=== PATIENT | male | born 1990 ===

== ENCOUNTER 2017-01-23 10:08 | Emergency (ER) | payer MEDICAID, OTHER ==
[2017-01-23 10:09] VITALS: BMI 25.7
[2017-01-23 10:13] VITALS: TEMP 98.9; O2SAT 97
[2017-01-23 11:11] LABS: BASO # 0.1 K/uL (0.0-0.2); BASO % 0.8 % (0.0-2.0); EOS % 0.3 % (0.0-4.0); HEMATOCRIT 45.2 % (35.0-51.0); LYMPH % 19.7 % (20.0-40.0); MEAN CELL VOLUME 79.8 fL (80.0-94.0); MEAN CORPUSCULAR HEMOGLOBIN 26.5 pg (27.0-31.0); MEAN CORPUSCULAR HGB CONC 33.2 g/dL (33.0-37.0); MEAN PLATELET VOLUME 8.6 fL (7.2-11.7); MONO # 0.8 K/uL (0.0-0.8); MONO % 7.5 % (0.0-10.0); RED CELL DISTRIBUTION WIDTH 14.4 % (11.5-14.5)
[2017-01-23 11:18] LABS: RBC URINE 4 /hpf (0-3); URINE BILIRUBIN NEGATIVE (NEGATIVE); URINE BLOOD NEGATIVE (NEGATIVE); URINE COLOR Yellow (YELLOW); URINE GLUCOSE (UA) NORMAL (Normal); URINE KETONE 1+ mg/dL (NEGATIVE); URINE LEUKOCYTE ESTERASE NEG Leu/uL (Negative); URINE PROTEIN 1+ mg/dL (NEGATIVE); URINE UROBILINOGEN NORMAL mg/dL (0.2-1.0); WBC URINE 2 /hpf (0-5)
[2017-01-23 11:20] LABS: CHLORIDE 99 mmol/L (98-107)
[2017-01-23 11:21] LABS: POTASSIUM 3.8 mmol/L (3.6-5.2); SODIUM 138 mmol/L (132-148)
[2017-01-23 11:23] LABS: ALB/GLOB RATIO 2.1 (1.0-2.1); ALKALINE PHOSPHATASE 82 U/L (38-126); ALT/SGPT 33 U/L (21-72); AST/SGOT 47 U/L (17-59); BILIRUBIN,TOTAL 0.8 mg/dL (0.2-1.3); BLOOD UREA NITROGEN 15 mg/dL (9-20); CALCIUM 9.4 mg/dl (8.6-10.4); CARBON DIOXIDE 27 mmol/L (22-30); GFR AFRICAN-AMERICAN > 60; GLUCOSE,RANDOM 98 mg/dL (75-110); TOTAL PROTEIN 7.8 g/dL (6.3-8.3)
[2017-01-23 11:24] LABS: ALCOHOL SERUM < 10 mg/dl (0-10)
--- NOTE | 2017-01-23 12:27 | C.PDOC ---
Time Seen by Provider: 01/23/17 10:30 Chief Complaint (Nursing): Psychiatric Evaluation Past Medical History Vital Signs: Last Vital Signs Temp 98.9 F 01/23/17 10:12 Pulse 75 01/23/17 10:12 Resp 20 01/23/17 10:12 BP 169/90 H 01/23/17 10:12 Pulse Ox 97 01/23/17 10:12 - Medical History PMH: Seizures (COLLEGE YEARS) Denies: Chronic Kidney Disease - [facility] Procedures INSPECTION OF UPPER INTESTINAL TRACT, ENDO (05/30/16) Family History: States: Unknown Family Hx - Social History Hx Tobacco Use: No Hx Alcohol Use: Yes (social) Hx Substance Use: Yes - Immunization History Hx Tetanus Toxoid Vaccination: Yes (2011) Hx Influenza Vaccination: No Hx Pneumococcal Vaccination: No ED Course And Treatment - Laboratory Results Result Diagrams: 01/23/17 11:03 01/23/17 11:03 O2 Sat by Pulse Oximetry: 97 Disposition Counseled Patient/Family Regarding: Studies Performed, Diagnosis, Need For Followup, Rx Given - Disposition Referrals: Ej Dove MD [Staff Provider] - Disposition: HOME/ ROUTINE Disposition Time: 12:24 Condition: GUARDED Additional Instructions: Avoid alcohol and elicit drugs. Follow up with Dr. Dove tomorrow. Return to the Emergency Department with any further concerns. Prescriptions: Lorazepam [Ativan] 1 tab PO TID #4 tab - POA Present On Arrival: None - Clinical Impression Clinical Impression: Paranoid behavior
[2017-01-23 12:30] VITALS: BP 135/88; PULSE 71; RESP 18
== END 2017-01-23 12:30 | disposition home or self-care (01) ==
LOC: C.ER 10:08
DX: F22 Delusional disorders (principal)

== ENCOUNTER 2017-02-09 03:17 | Inpatient (IN) | payer MEDICAID, OTHER ==
[2017-02-09 03:17] VITALS: BMI 25.7
--- NOTE | 2017-02-09 04:06 | C.PDOC ---
History Of Present Illness 26 year old male who presents to the ER accompanied by mother for visual and auditory hallucinations. Mother states patient was seeing people with guns in the house and was using knives to fight them off. Patient missed his psychiatric appointment and has not been taking his medication. Denies SI or HI. Time Seen by Provider: 02/09/17 03:47 Chief Complaint (Nursing): Psychiatric Evaluation History Per: Patient, Family History/Exam Limitations: no limitations Onset/Duration Of Symptoms: Hrs Current Symptoms Are (Timing): Still Present Suicide/Self Injury Attempted (Context): None Modifying Factor(s): None Associated Symptoms: denies: Depression, Suicidal Thoughts, Suicidal Plan Involuntary Hold By: None Recent travel outside of the [place]: No Past Medical History Reviewed: Historical Data, Nursing Documentation, Vital Signs Vital Signs: Last Vital Signs Temp 98.3 F 02/09/17 03:36 Pulse 78 02/09/17 03:36 Resp 16 02/09/17 03:36 BP 151/60 H 02/09/17 03:36 Pulse Ox 98 02/09/17 04:10 - Medical History PMH: Seizures (COLLEGE YEARS) - [facility] Procedures INSPECTION OF UPPER INTESTINAL TRACT, ENDO (05/30/16) Family History: States: Unknown Family Hx - Social History Hx Tobacco Use: No Hx Alcohol Use: Yes (social) Hx Substance Use: Yes - Immunization History Hx Tetanus Toxoid Vaccination: Yes (2011) Hx Influenza Vaccination: No Hx Pneumococcal Vaccination: No Review Of Systems Psych: Positive for: Other (Hallucinations). Negative for: Suicidal ideation Physical Exam - Physical Exam Appears: Non-toxic, No Acute Distress, Other (Disheveled, poor hygiene) Skin: Normal Color, Warm, Dry Head: Atraumatic, Normacephalic Oral Mucosa: Moist Chest: Symmetrical, No Tenderness Cardiovascular: Rhythm Regular, No Murmur Respiratory: Normal Breath Sounds, No Rales, No Rhonchi, No Wheezing Neurological/Psych: Oriented x3, Normal Speech, Normal Cognition ED Course And Treatment - Laboratory Results Result Diagrams: 02/09/17 04:28 02/09/17 04:28 O2 Sat by Pulse Oximetry: 98 (Room air) Pulse Ox Interpretation: Normal Progress Note: Case discussed with Crisis. Pt was seen and evaluated for psych admission bycrisis worker, pending Utox screen Disposition - Disposition Disposition Time: 06:52 Condition: STABLE - Clinical Impression Clinical Impression: Hallucinations - Scribe Statement The provider has reviewed the documentation as recorded by the Scribe Jose Ramon Camejo All medical record entries made by the Scribe were at my direction and personally dictated by me. I have reviewed the chart and agree that the record accurately reflects my personal performance of the history, physical exam, medical decision making, and the department course for this patient. I have also personally directed, reviewed, and agree with the discharge instructions and disposition. Physician Patient Turnover Patient Signed Over To: Gayathri Viveros Handoff Comments: Pending urine and admission to psych
[2017-02-09 04:31] LABS: BASO # 0.1 K/uL (0.0-0.2); BASO % 0.4 % (0.0-2.0); EOS % 0.1 % (0.0-4.0); HEMOGLOBIN 15.1 g/dL (12.0-18.0); LYMPH % 15.2 % (20.0-40.0); MEAN CELL VOLUME 79.2 fL (80.0-94.0); MEAN CORPUSCULAR HEMOGLOBIN 26.4 pg (27.0-31.0); MEAN CORPUSCULAR HGB CONC 33.4 g/dL (33.0-37.0); MEAN PLATELET VOLUME 8.7 fL (7.2-11.7); MONO # 1.1 K/uL (0.0-0.8); MONO % 8.5 % (0.0-10.0); NEUT # 10.1 K/uL (1.8-7.0); NEUT % 75.8 % (50.0-75.0); NRBC % 0.1 % (0.0-2.0); RBC 5.71 Mil/uL (4.40-5.90); RED CELL DISTRIBUTION WIDTH 13.6 % (11.5-14.5); WHITE BLOOD COUNT 13.3 K/uL (4.8-10.8)
[2017-02-09 04:35] LABS: ALBUMIN 4.2 g/dL (3.5-5.0)
[2017-02-09 04:38] LABS: ALB/GLOB RATIO 1.3 (1.0-2.1); AST/SGOT 42 U/L (17-59); BLOOD UREA NITROGEN 18 mg/dL (9-20); GFR AFRICAN-AMERICAN > 60; GFR NON-AFRICAN AMERICAN > 60
[2017-02-09 04:39] LABS: ALT/SGPT 25 U/L (21-72); CALCIUM 9.6 mg/dl (8.6-10.4)
[2017-02-09 07:17] LABS: SPERM URINE RARE /hpf; SQUAMOUS EPITHIAL < 1 /hpf (0-5); URINE BILIRUBIN NEGATIVE (NEGATIVE); URINE BLOOD NEGATIVE (NEGATIVE); URINE CLARITY Clear (Clear); URINE COLOR Amber (YELLOW); URINE GLUCOSE (UA) NORMAL (Normal); URINE LEUKOCYTE ESTERASE NEG Leu/uL (Negative); URINE NITRATE NEGATIVE (NEGATIVE); URINE PROTEIN 1+ mg/dL (NEGATIVE); URINE UROBILINOGEN NORMAL mg/dL (0.2-1.0)
[2017-02-09 07:22] LABS: BARBITURATES, UR NEGATIVE (NEGATIVE)
[2017-02-09 07:25] LABS: PHENCYCLIDINE, UR NEGATIVE (NEGATIVE)
[2017-02-09 07:44] LABS: BENZODIAZEPINES, UR POSITIVE (NEGATIVE)
[2017-02-09 07:46] LABS: OPIATES, UR POSITIVE (NEGATIVE)
[2017-02-09 08:14] VITALS: O2SAT 98
--- NOTE | 2017-02-09 12:07 | PCM.PSYCH ---
Initial Psychiatric Evaluation - Initial Psychiatric Evaluation Type of Admission: Voluntary Legal Status: Capacity Chief Complaint (in patient's own words): "People are coming to my house." History of Present Illness and Precipitating Events: Patient is a 26 year old single AAM brought to the ED by mother for paranoid delusions of people following him and being in his house with guns today. As per the ED notes, patient's mother reported that Patient missed his appointment with the psychiatrist and stated that the delusions have gotten worse. Patient stated that earlier 'he was seeing people' and when he tried to tell him mom she told him nobody was there. Pt remained disorganized and internally preoccupied throughout the evaluation. He was superficially cooperative but remained guarded about the details. He was talking to himself continuously and had a one sided conversation. He remained paranoid and delusional. He stated, ' people are coming to my house and they are looking for me." He reports auditory hallucinations command type, telling him to kill himself and reports seeing people that are in his house. He remained irritable and a bit agitated throughout the evaluation. Patient also stated that he's using "mollies, marijuana, oxycodine, cocaine and xanax". He remained anxious and uncomfortable. Patient appeared very anxious stated that he attempted to show his mother the people in the house but she didn't see them. However he remained guarded about suicidal ideation but denied any thoughts of harming others. PMH None reported Past Psychiatric History - Past Psychiatric History Previous Treatment History: None Pertinent Medical Hx (Current Medical&Sleep Prob, Allergies): Allergies Allergy/AdvReac Type Severity Reaction Status Date / Time No Known Allergies Allergy Verified 02/09/17 03:40 Review of Systems - Review of Systems All systems: reviewed and no additional remarkable complaints except - Psychiatric Psychiatric: Anxiety, Irritability, Paranoia Mental Status Examination - Personal Presentation Personal Presentation: Looks stated age - Affect Affect: Broad - Motor Activity Motor Activity: Psychomotor Retardation - Reliability in Providing Information Reliability in Providing Information: Poor, due to alteration in thoughts, Poor , due to altered mood - Speech Speech: Disorganized - Mood Mood: Anxious - Formal Thought Process Formal Thought Process: Hallucinations, Delusions, Paranoia, Loosening of associations, Flight of ideas - Hallucinations/Delusions Hallucinations: Visual, Auditory Delusions: Persecution - Obsessions/Compulsions Obsessions: No Compulsions: No - Cognitive Functions Orientation: Person, Place, Situation, Time Sensorium: Alert Attention/Concentration: Attentive Abstract Thinking: [place] Estimate of Intelligence: Below average Judgement: Imparied, as evidence by: Poor judgement, Imparied, as evidence by: Lack of insight into illness - Risk Risk: Diminished functioning - Strength & Assets Inventory Strength & Assets Inventory: Family support DSM 5 DX - DSM 5 DSM 5 Diagnosis: Schizophrenia paranoid type continuous Cocaine use disorder severe Cannabis use disorder severe Opiate use disorder moderate - Recommended/Plan of Treatment Treatment Recommendations and Plan of Treatment: Schizophrenia paranoid type continuous CBT Psychoeducation Supportive therapy, group therapy, individual therapy Haldol 5 mg g by mouth twice a day Neurontin 100 mg by mouth 3 times a day Klonopin 1 mg by mouth twice a day Depakote 250 mg by mouth twice a day Trazodone 50 mg by mouth daily at bedtime Cannabis use disorder severe CBT Psychoeducation Supportive therapy, individual therapy Use [place] for abstinence Opioid use disorder severe CBT Psychoeducation Supportive therapy, individual therapy Use [place] for abstinence Cocaine use disorder severe CBT Psychoeducation Supportive therapy, individual therapy Use [place] for abstinence - Smoking Cessation Smoking Cessation Initiated: No
[2017-02-09] MEDS: Divalproex 250 mg DR Tab PO SCH (17:33)
[2017-02-10] MEDS: Divalproex 250 mg DR Tab PO SCH (10:16)
--- NOTE | 2017-02-10 17:25 | PCM.PYCHPN ---
Psychiatric Progress Note - Psychiatric Progress Note Patient seen today, length of contact: 17 min Patient Chief Complaint: "I'm OK, I can go today" Problems Identified/Issues Discussed: The pt is seen, chart reviewed, case discussed with staff. Support given, NV used briefly No new symptoms reported, improving slowly and needs some more time However, he has zero insight and thinks he is "just fine" No SEs from medications, risks discussed. After care discussed - not interested. Medication Change: Yes Medical Record Reviewed: Yes Mental Status Examination - Cognitive Function Orientation: Person, Place, Situation, Time Memory: Impaired Attention: Poor Concentration: Poor Association: Loose Fund of Knowledge: Poor - Mood Mood: Anxious - Affect Affect: Constricted - Formal Thought Process Formal Thought Process: Delusions, Paranoia, Loosening of associations - Suicidal Ideation Suicidal Ideation: No - Homicidal Ideation Homicidal Ideation: No Goal/Treatment Plan - Goal/Treatment Plan Need for Continued Stay: Discharge may exacerbated symptoms, Severe functional impairment Progress Toward Problem(s) and Goals/Treatment Plan: Continue medications Support and psychoeducation daily Attend groups and activities daily After care planning by SIENA but he is at risk to sign out AMA due to low insight
[2017-02-10] MEDS: Divalproex 500 mg DR Tab PO SCH ×2 (17:40→17:42)
[2017-02-11 07:56] VITALS: RESP 18
[2017-02-11] MEDS: Divalproex 500 mg DR Tab PO SCH ×2 (10:07→17:26)
--- NOTE | 2017-02-11 16:52 | PCM.PYCHPN ---
Psychiatric Progress Note - Psychiatric Progress Note Patient seen today, length of contact: 15 minutes Patient Chief Complaint: I am okay. When can I go home. Problems Identified/Issues Discussed: Patient seen. Chart reviewed. Case discussed with the staff. Issues related to illness and treatment were discussed with the patient. Reported compliant with treatment with no adverse affects. Tolerating treatment very well. Still isolative. No withdrawal symptoms. At the time of evaluation, patient was awake alert oriented 3, had no delusions, no auditory or visual hallucinations, no suicidal ideations or homicidal ideations. Medical Problems: None reported Diagnostic Results: Reviewed DSM 5 Symptoms Update: some improvement with treatment Medication Change: No Medical Record Reviewed: Yes Mental Status Examination - Cognitive Function Orientation: Person, Place, Situation, Time Memory: Intact Attention: WNL Concentration: WNL Association: WNL Fund of Knowledge: [facility] Decription of patient's judgement and insights: Poor - Mood Mood: Neutral - Affect Affect: Constricted - Speech Speech: Appropriate - Formal Thought Process Formal Thought Process: Other - Suicidal Ideation Suicidal Ideation: No - Homicidal Ideation Homicidal Ideation: No Goal/Treatment Plan - Goal/Treatment Plan Need for Continued Stay: Remain at risks for inpatient hospitalization, Discharge may exacerbated symptoms, Severe functional impairment Progress Toward Problem(s) and Goals/Treatment Plan: Patient education Supportive therapy Continue treatment as before Estimated Date of D/C: 02/16/17 - Smoking Cessation Smoking Cessation Initiated: No
[2017-02-12] MEDS: Divalproex 500 mg DR Tab PO SCH ×2 (10:30→18:13)
--- NOTE | 2017-02-12 15:56 | PCM.PYCHPN ---
Psychiatric Progress Note - Psychiatric Progress Note Patient seen today, length of contact: 15 minutes Patient Chief Complaint: "People are coming to my house." Problems Identified/Issues Discussed: Patient seen and evaluated, chart reviewed and discussed with the nurse. Patient appeared more organized and less internally preoccupied. Patient reports irritability, anxiety and agitation. Patient still appears paranoid and delusional. He reports improvement in his depressed mood but remained isolated and withdrawn, denies any suicidal ideation or homicidal ideation. He is taking medication and denies any side effects. Supportive therapy and psychoeducation were given. Medication Change: No Medical Record Reviewed: Yes Mental Status Examination - Cognitive Function Orientation: Person, Place, Situation, Time Memory: Intact Attention: WNL Concentration: Poor Association: WNL Fund of Knowledge: Poor - Mood Mood: Neutral - Affect Affect: Constricted - Speech Speech: Appropriate, Soft - Formal Thought Process Formal Thought Process: Delusions, Paranoia, Loosening of associations, Other - Suicidal Ideation Suicidal Ideation: No - Homicidal Ideation Homicidal Ideation: No Goal/Treatment Plan - Goal/Treatment Plan Need for Continued Stay: Remain at risks for inpatient hospitalization, Discharge may exacerbated symptoms, Severe functional impairment Progress Toward Problem(s) and Goals/Treatment Plan: Schizophrenia paranoid type continuous CBT Psychoeducation Supportive therapy, group therapy, individual therapy Haldol 5 mg g by mouth twice a day Neurontin 100 mg by mouth 3 times a day Klonopin 1 mg by mouth twice a day Depakote 250 mg by mouth twice a day Trazodone 50 mg by mouth daily at bedtime Cannabis use disorder severe CBT Psychoeducation Supportive therapy, individual therapy Use [place] for abstinence Opioid use disorder severe CBT Psychoeducation Supportive therapy, individual therapy Use [place] for abstinence Cocaine use disorder severe CBT Psychoeducation Supportive therapy, individual therapy Use [place] for abstinence Estimated Date of D/C: 02/16/17 - Smoking Cessation Smoking Cessation Initiated: No
[2017-02-13 07:58] VITALS: BP 86/56; PULSE 86; TEMP 98.2
[2017-02-13] MEDS: Divalproex 500 mg DR Tab PO SCH (10:04)
--- NOTE | 2017-02-13 10:27 | PCM.PYCHPN ---
Psychiatric Progress Note - Psychiatric Progress Note Patient seen today, length of contact: 15 minutes Patient Chief Complaint: "People are coming to my house." Medication Change: No Medical Record Reviewed: Yes Mental Status Examination - Cognitive Function Orientation: Person, Place, Situation, Time Memory: Intact Attention: WNL Concentration: WNL Association: WNL Fund of Knowledge: WNL - Mood Mood: Neutral - Affect Affect: Constricted - Speech Speech: Appropriate - Formal Thought Process Formal Thought Process: Other - Suicidal Ideation Suicidal Ideation: No - Homicidal Ideation Homicidal Ideation: No Goal/Treatment Plan - Goal/Treatment Plan Need for Continued Stay: Remain at risks for inpatient hospitalization, Discharge may exacerbated symptoms, Severe functional impairment Progress Toward Problem(s) and Goals/Treatment Plan: Schizophrenia paranoid type continuous CBT Psychoeducation Supportive therapy, group therapy, individual therapy Haldol 5 mg g by mouth twice a day Neurontin 100 mg by mouth 3 times a day Klonopin 1 mg by mouth twice a day Depakote 250 mg by mouth twice a day Trazodone 50 mg by mouth daily at bedtime Cannabis use disorder severe CBT Psychoeducation Supportive therapy, individual therapy Use [place] for abstinence Opioid use disorder severe CBT Psychoeducation Supportive therapy, individual therapy Use [place] for abstinence Cocaine use disorder severe CBT Psychoeducation Supportive therapy, individual therapy Use [place] for abstinence Estimated Date of D/C: 02/16/17
--- NOTE | 2017-02-13 14:41 | PCM.PYCHDC ---
Mental Status Examination - Mental Status Examination Orientation: Person, Place, Situation, Time Memory: Intact Mood: Neutral Affect: Constricted Speech: Soft Attention: WNL Concentration: WNL Association: WNL Fund of Knowledge: WNL Formal Thought Process: No Impairment Description of patient's judgement and insight: good, fair Psychotic Thoughts and Behaviors: denies any AVH Suicidal Ideation: No Current Homicidal Ideation?: No Discharge Summary - Discharge Note Reason for Hospitalization: Patient is a 26 year old single AAM brought to the ED by mother for paranoid delusions of people following him and being in his house with guns today. As per the ED notes, patient's mother reported that Patient missed his appointment with the psychiatrist and stated that the delusions have gotten worse. Patient stated that earlier 'he was seeing people' and when he tried to tell him mom she told him nobody was there. Pt remained disorganized and internally preoccupied throughout the evaluation. He was superficially cooperative but remained guarded about the details. He was talking to himself continuously and had a one sided conversation. He remained paranoid and delusional. He stated, ' people are coming to my house and they are looking for me." He reports auditory hallucinations command type, telling him to kill himself and reports seeing people that are in his house. He remained irritable and a bit agitated throughout the evaluation. Patient also stated that he's using "mollies, marijuana, oxycodine, cocaine and xanax". He remained anxious and uncomfortable. Patient appeared very anxious stated that he attempted to show his mother the people in the house but she didn't see them. However he remained guarded about suicidal ideation but denied any thoughts of harming others. Consultations:: List each consultation separately and include: 1. Reason for request. 2. Findings. 3. Follow-up Summary of Hospital Course include:: 1. Description of specific treatment plan utilized for patients during their course of treatmen. 2. Summarize the time- course for resolution of acute symptoms and/or regressed behaviors. 3. Describe issues identified and worked on during hospitalization. 4. Describe medication utilized. 5. Describe medical problems identified and treated. 6. Reassessment of suicide risk Summary of Hospital Course: During the course of his stay, patient (pt) started progressively improving and he no longer remained irritable, depressed, suicidal and paranoid. His mood and paranoia were improved and he started attending groups and meetings and started socializing. He started taking care of his hygiene and ADLs, and he no longer remained disheveled and malodorous. Patient denied any feelings of hopelessness , helplessness, and worthlessness, denied any problem with the sleep or appetite , denied suicidal ideation or homicidal ideation. Pt denied any auditory or visual hallucinations. Some changes were made in his current medications and patient was discharged on following medications. He tolerated these medications very well and denied any side effects. - Final Diagnosis (DSM 5) Condition upon Discharge: STABLE DSM 5: Schizophrenia paranoid type continuous Cocaine use disorder severe Cannabis use disorder severe Opiate use disorder moderate Disposition: HOME/ ROUTINE Follow-up Treatment Plan: Education: Pt was educated and counseled about the risks and benefits of taking and not taking medications. Pt was educated and counseled about the risks of drinking and abusing drugs. Pt was educated and counseled to go to the ER or call 911 if pt develop suicidal ideation or homicidal ideation, worsening of symptoms or severe side effects of the meds. Prescriptions/Medication Reconciliation: Benztropine [Cogentin] 1 mg PO BID #60 tab Divalproex [Depakote DR] 500 mg PO BID #60 tcp Haloperidol [Haldol] 10 mg PO BID #60 tab traZODone [Desyrel] 50 mg PO HS PRN #30 tab PRN Reason: Insomnia - Smoking Cessation Smoking Cessation Medication prescribed: No - Antipsychotic Medications Pt discharged on 2 or more routine antipsychotic medications: No
== END 2017-02-13 16:44 | disposition home or self-care (01) | DRG 430 ==
LOC: C.ER 03:17 → C.9E 08:03 → C.5E 08:37
PROVIDERS: ADMIT Psychiatry & Neurology Psychiatry; ATTEND Psychiatry & Neurology Psychiatry
PROC: HZ52ZZZ Individual Psychotherapy for Substance Abuse Treatment, Cognitive-Behavioral (ICD-10-PCS; principal; 2017-02-09)
PROC: GZHZZZZ Group Psychotherapy (ICD-10-PCS; 2017-02-09)
PROC: HZ59ZZZ Individual Psychotherapy for Substance Abuse Treatment, Supportive (ICD-10-PCS; 2017-02-09)
PROC: HZ56ZZZ Individual Psychotherapy for Substance Abuse Treatment, Psychoeducation (ICD-10-PCS; 2017-02-09)
PROC: GZ58ZZZ Individual Psychotherapy, Cognitive-Behavioral (ICD-10-PCS; 2017-02-09)
PROC: GZ56ZZZ Individual Psychotherapy, Supportive (ICD-10-PCS; 2017-02-09)
DX: F20.0 Paranoid schizophrenia (principal); F11.10 Opioid abuse, uncomplicated; F14.10 Cocaine abuse, uncomplicated; F12.10 Cannabis abuse, uncomplicated

== ENCOUNTER 2017-04-05 14:43 | Emergency (ER) | payer MEDICAID, OTHER ==
[2017-04-05 14:43] VITALS: BMI 25.7
[2017-04-05 15:00] VITALS: BP 99/63; PULSE 84; RESP 20; TEMP 98.9; O2SAT 98
--- NOTE | 2017-04-05 15:31 | C.PDOC ---
History Of Present Illness 26 y/o M presents for medication refills. Patient states he was admitted here for hallucinations. He was discharged on medications, has run out, threw out bottles, and does not remember their names. Denies any acute symptoms. Time Seen by Provider: 04/05/17 15:05 Chief Complaint (Nursing): Med Refill Past Medical History Vital Signs: Last Vital Signs Temp 98.9 F 04/05/17 14:58 Pulse 84 04/05/17 14:58 Resp 20 04/05/17 14:58 BP 99/63 L 04/05/17 14:58 Pulse Ox 98 04/05/17 14:58 - Medical History PMH: Seizures (COLLEGE YEARS) Denies: Diabetes, Hepatitis, HIV, HTN, Chronic Kidney Disease, Sexually Transmitted Disease - [facility] Procedures GROUP PSYCHOTHERAPY (02/09/17) INDIV PSYCHOTHERAPY FOR SUBSTANCE ABUSE TREATMENT, SUPPORT (02/09/17) INDIV PSYCHOTHERAPY FOR SUBSTANCE ABUSE, COGNITIV BEHAVIORAL (02/09/17) INDIV PSYCHOTHERAPY FOR SUBSTANCE ABUSE, PSYCHOEDUCATION (02/09/17) INDIVIDUAL PSYCHOTHERAPY, COGNITIVE-BEHAVIORAL (02/09/17) INDIVIDUAL PSYCHOTHERAPY, SUPPORTIVE (02/09/17) INSPECTION OF UPPER INTESTINAL TRACT, ENDO (05/30/16) Family History: States: Unknown Family Hx - Social History Hx Tobacco Use: No Hx Alcohol Use: Yes (social) Hx Substance Use: Yes - Immunization History Hx Tetanus Toxoid Vaccination: Yes (2011) Hx Influenza Vaccination: No Hx Pneumococcal Vaccination: No Review Of Systems Except As Marked, All Systems Reviewed And Found Negative. Constitutional: Negative for: Fever Cardiovascular: Negative for: Chest Pain Physical Exam - Physical Exam Appears: No Acute Distress Neurological/Psych: Normal Speech Gait: Steady ED Course And Treatment O2 Sat by Pulse Oximetry: 98 Medical Decision Making Medical Decision Making: I looked up patient's discharge prescriptions and wrote them down for patient. Informed patient can have refills filled at [facility] and given paper with address. Also instructed to make recurring appointments with [facility] across street. Patient thanked me and walked out of ER without any papers. A full physical exam was not performed for this reason. Disposition - Disposition Disposition: ELOPEMENT - ER ONLY Disposition Time: 15:16 Condition: STABLE Forms: [facility] ([facility]) - Clinical Impression Clinical Impression: Review of medication
== END 2017-04-05 16:25 | disposition left against medical advice (07) ==
LOC: C.ER 14:43
DX: Z76.0 Encounter for issue of repeat prescription (principal)

== ENCOUNTER 2018-02-01 17:50 | Emergency (ER) | payer MEDICAID, OTHER ==
[2018-02-01 17:50] VITALS: BMI 25.7
[2018-02-01 18:00] VITALS: TEMP 98.1
--- NOTE | 2018-02-01 18:13 | C.PDOC ---
History Of Present Illness <Yaquelin Bullard - Last Filed: 02/01/18 18:47> <Anson Hobbs - Last Filed: 02/01/18 23:15> 27 y/o male with history of Paranoid Schizophrenia ( noncompliant with his Psych meds), Hx of 1 episode of Seizure presents to ED referred by PMD for abnormal labs and with c/o constant right flank "burning" pain for 2-3 weeks. Patient states pain is wax and waning, reports normal urine output and admits to actively using Ecstasy. Patient has history of Polysubstance Abuse and s/o narcotic overdose, intubation 11/2017. (Yaquelin Bullard) History Per: Patient History/Exam Limitations: no limitations Onset/Duration Of Symptoms: Days Current Symptoms Are (Timing): Still Present <Yaquelin Bullard - Last Filed: 02/01/18 18:47> <Anson Hobbs - Last Filed: 02/01/18 23:15> Time Seen by Provider: 02/01/18 18:12 Chief Complaint (Nursing): Back Pain Past Medical History Reviewed: Historical Data, Nursing Documentation, Vital Signs - Medical History PMH: Seizures (COLLEGE YEARS) Surgical History: No Surg Hx Family History: States: No Known Family Hx - Social History Hx Tobacco Use: No Hx Alcohol Use: Yes Hx Substance Use: Yes - Immunization History Hx Tetanus Toxoid Vaccination: No (2011) Hx Influenza Vaccination: No Hx Pneumococcal Vaccination: (unk) <Yaquelin Bullard - Last Filed: 02/01/18 18:47> Vital Signs: Last Vital Signs Temp 98.1 F 02/01/18 17:53 Pulse 90 02/01/18 17:53 Resp 19 02/01/18 17:53 BP 116/68 02/01/18 17:53 Pulse Ox 98 02/01/18 18:49 - [facility] Procedures GROUP PSYCHOTHERAPY (02/09/17) INDIV PSYCHOTHERAPY FOR SUBSTANCE ABUSE TREATMENT, SUPPORT (02/09/17) INDIV PSYCHOTHERAPY FOR SUBSTANCE ABUSE, COGNITIV BEHAVIORAL (02/09/17) INDIV PSYCHOTHERAPY FOR SUBSTANCE ABUSE, PSYCHOEDUCATION (02/09/17) INDIVIDUAL PSYCHOTHERAPY, COGNITIVE-BEHAVIORAL (02/09/17) INDIVIDUAL PSYCHOTHERAPY, SUPPORTIVE (02/09/17) INSERTION OF ENDOTRACHEAL AIRWAY INTO TRACHEA, VIA OPENING (11/02/17) INSPECTION OF UPPER INTESTINAL TRACT, ENDO (05/30/16) RESPIRATORY VENTILATION, LESS THAN 24 CONSECUTIVE HOURS (11/02/17) Review Of Systems Constitutional: Negative for: Fever, Chills Gastrointestinal: Negative for: Nausea, Vomiting, Abdominal Pain Genitourinary: Negative for: Dysuria, Hematuria Musculoskeletal: Positive for: Other (flank pain) Skin: Negative for: Rash Psych: Negative for: Anxiety, Suicidal ideation <Yaquelin Bullard Last Filed: 02/01/18 18:47> Physical Exam - Physical Exam Appears: Non-toxic, Other (In mild discomfort) Skin: Warm, Dry, No Rash Head: Atraumatic, Normacephalic Eye(s): bilateral: Normal Inspection Oral Mucosa: Moist Neck: Normal ROM, Supple Cardiovascular: Rhythm Regular Respiratory: Normal Breath Sounds, No Rales, No Rhonchi, No Wheezing Gastrointestinal/Abdominal: Soft, No Tenderness, No Guarding, No Rebound Back: No CVA Tenderness, No Paraspinal Tenderness Neurological/Psych: Oriented x3, Normal Speech, Normal Cognition, Other (Calm, cooperative. No acute intoxication ) <Yaquelin Bullard Last Filed: 02/01/18 18:47> ED Course And Treatment - Laboratory Results Result Diagrams: 02/01/18 18:32 O2 Sat by Pulse Oximetry: 98 (RA) Pulse Ox Interpretation: Normal <Yaquelin Bullard Last Filed: 02/01/18 18:47> - Laboratory Results Result Diagrams: 02/01/18 18:32 02/01/18 18:32 <Anson Hobbs - Last Filed: 02/01/18 23:15> Progress - Data Reviewed Data Reviewed: Lab, Diagnostic imaging, Old records <Juan MiguelYaquelin Gomez Last Filed: 02/01/18 18:47> Disposition Counseled Patient/Family Regarding: Studies Performed, Diagnosis - Disposition Disposition Time: 19:00 <Juan MiguelYaquelin Gomez Last Filed: 02/01/18 18:47> Counseled Patient/Family Regarding: Studies Performed, Diagnosis - POA Present On Arrival: None <Anson Hobbs - Last Filed: 02/01/18 23:15> - Disposition Referrals: [facility] [Outside] Condition: STABLE Instructions: Flank Pain, Acute Abdomen (Belly Pain), Adult (DC) Forms: [employer] (Colombian) - Clinical Impression Clinical Impression: Leukocytosis, Flank pain, Abdominal pain - Scribe Statement The provider has reviewed the documentation as recorded by the Scribe <Yaquelin Bullard - Last Filed: 02/01/18 18:47> <Anson Hobbs - Last Filed: 02/01/18 23:15> - Scribe Statement Erwin Rodriguezta All medical record entries made by the Scribe were at my direction and personally dictated by me. I have reviewed the chart and agree that the record accurately reflects my personal performance of the history, physical exam, medical decision making, and the department course for this patient. I have also personally directed, reviewed, and agree with the discharge instructions and disposition. (Yaquelin Bullard) Physician Patient Turnover Patient Signed Over To: Anson Hobbs Handoff Comments: FU LABS, DISPO <Yaquelin Bullard - Last Filed: 02/01/18 18:47>
[2018-02-01] MEDS ORDERED: SODIUM CHLORIDE 0.9% IV STA (18:20)
[2018-02-01] MEDS ORDERED: LIDOCAINE IV STA (18:20)
[2018-02-01 18:38] LABS: BASO # 0.1 K/uL (0.0-0.2); BASO % 0.6 % (0.0-2.0); EOS % 0.4 % (0.0-4.0); HEMOGLOBIN 14.6 g/dL (12.0-18.0); LYMPH # 2.4 K/uL (1.0-4.3); LYMPH % 21.4 % (20.0-40.0); MEAN CELL VOLUME 77.5 fL (80.0-94.0); MEAN CORPUSCULAR HEMOGLOBIN 26.4 pg (27.0-31.0); MEAN CORPUSCULAR HGB CONC 34.1 g/dL (33.0-37.0); MEAN PLATELET VOLUME 8.3 fL (7.2-11.7); MONO % 8.9 % (0.0-10.0); NEUT # 7.7 K/uL (1.8-7.0); NEUT % 68.7 % (50.0-75.0); NRBC % 0.1 % (0.0-2.0); RBC 5.51 Mil/uL (4.40-5.90); WHITE BLOOD COUNT 11.2 K/uL (4.8-10.8)
[2018-02-01 18:47] LABS: SPERM URINE FEW /hpf; SQUAMOUS EPITHIAL < 1 /hpf (0-5); URINE BACTERIA RARE (<OCC); URINE BILIRUBIN NEGATIVE (NEGATIVE); URINE BLOOD NEGATIVE (NEGATIVE); URINE CLARITY Hazy (Clear); URINE COLOR Yellow (YELLOW); URINE GLUCOSE (UA) NORMAL (Normal); URINE LEUKOCYTE ESTERASE NEG Leu/uL (Negative); URINE PROTEIN NEGATIVE (NEGATIVE); URINE UROBILINOGEN NORMAL mg/dL (0.2-1.0)
[2018-02-01 18:56] LABS: ALB/GLOB RATIO 1.3 (1.0-2.1); ALBUMIN 4.1 g/dL (3.5-5.0); ALT/SGPT 28 U/L (21-72); AST/SGOT 35 U/L (17-59); BLOOD UREA NITROGEN 15 mg/dL (9-20); CALCIUM 8.9 mg/dl (8.6-10.4); GFR AFRICAN-AMERICAN > 60; GFR NON-AFRICAN AMERICAN > 60; LIPASE 421 U/L (23-300)
[2018-02-01 19:06] LABS: BARBITURATES, UR NEGATIVE (NEGATIVE); OPIATES, UR NEGATIVE (NEGATIVE); PHENCYCLIDINE, UR NEGATIVE (NEGATIVE)
[2018-02-01 19:07] LABS: BENZODIAZEPINES, UR POSITIVE (NEGATIVE)
--- NOTE | 2018-02-01 19:08 | RAD ---
HISTORY: R SIDE PAIN COMPARISON: Chest x-ray 05/30/2016 TECHNIQUE: Chest PA and lateral FINDINGS: LUNGS: No focal consolidation is seen. PLEURA: No pleural effusion is identified. CARDIOVASCULAR: Heart size is within normal limits. OSSEOUS STRUCTURES: No acute fracture none VISUALIZED UPPER ABDOMEN: Unremarkable. OTHER FINDINGS: None. IMPRESSION: No acute cardiopulmonary process seen.
[2018-02-01 23:31] VITALS: BP 133/85; PULSE 89; RESP 18; O2SAT 100
--- NOTE | 2018-02-02 15:20 | CT ---
PROCEDURE: CT abdomen pelvis dated 02/01/2018 HISTORY: Abdominal pain/ elevated lipase COMPARISON: None. TECHNIQUE: Contiguous axial images of the abdomen and pelvis performed without oral or intravenous contrast material. Additional 2D sagittal and coronal reformats reformats generated. Radiation dose: Total exam DLP = 263.16 mGy-cm. This CT exam was performed using one or more of the following dose reduction techniques: Automated exposure control, adjustment of the mA and/or kV according to patient size, and/or use of iterative reconstruction technique. . Note that this examination is limited due to the lack of oral and intravenous contrast material as well as a paucity of intraperitoneal and retroperitoneal fat. As a result, loops of bowel are crowded against one another reducing contrast between anatomic structures. FINDINGS: LOWER THORAX: Heart size within range of normal. No significant pericardial effusion. Lung bases clear. No infiltrate effusion or basilar pneumothorax. . LIVER: Liver exhibits normal size and attenuation pattern without mass collection or calcification pancreatic head is somewhat bulky in appearance GALLBLADDER AND BILE DUCTS: Unremarkable. PANCREAS: Pancreatic head is appears somewhat bulky though it is unclear whether some of the bulk represents adjacent small bowel. . Possibility of an early pancreatitis cannot be excluded. Clinical correlation recommended. . SPLEEN: Unremarkable. No splenomegaly. ADRENALS: Unremarkable. KIDNEYS AND URETERS: Unremarkable. No stone or hydronephrosis. BLADDER: Grossly unremarkable. REPRODUCTIVE: Unremarkable. APPENDIX: Appendix is not identified with any certainty. No obvious inflammatory changes right lower quadrant of the abdomen appear clinical correlation recommended. BOWEL: Unremarkable. No obstruction. No gross mural thickening. PERITONEUM: Unremarkable. No fluid collection. No free air. LYMPH NODES: Unremarkable. No enlarged lymph nodes. VASCULATURE: Unremarkable. No aortic aneurysm. BONES: No fracture or destructive lesion. OTHER FINDINGS: None. IMPRESSION: Limited study. Bulky appearing pancreatic head which could be in part secondary to adjacent unopacified compressed loops of small bowel. Possibility of an acute pancreatitis cannot be excluded. Clinical correlation recommended. If indicated repeat CT scan with oral and intravenous contrast to could be performed for further evaluation.
== END 2018-02-01 23:30 | disposition home or self-care (01) ==
LOC: C.ER 17:50
DX: D72.829 Elevated white blood cell count, unspecified (principal); R10.9 Unspecified abdominal pain
CPT/HCPCS: 71046; 74176; 80053; 80324; 80345; 80346; 80349; 80353; 80358; 80361; 81001; 83690; 83992; 85025; 87086; 99284; J2001

== ENCOUNTER 2018-03-09 23:24 | Inpatient (IN) | payer MEDICAID, OTHER ==
[2018-03-09 23:24] VITALS: BMI 25.7
[2018-03-10] MEDS ORDERED: Tdap Vaccine 0.5 ml Vial (10-64 yrs) IM ONE ×2 (00:18→00:35)
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
[2018-03-10 01:23] LABS: BASO # 0.1 K/uL (0.0-0.2); BASO % 0.3 % (0.0-2.0); HEMOGLOBIN 15.8 g/dL (12.0-18.0); LYMPH # 1.6 K/uL (1.0-4.3); LYMPH % 9.2 % (20.0-40.0); MEAN CELL VOLUME 79.3 fL (80.0-94.0); MEAN CORPUSCULAR HEMOGLOBIN 26.9 pg (27.0-31.0); MEAN CORPUSCULAR HGB CONC 33.9 g/dL (33.0-37.0); MEAN PLATELET VOLUME 9.1 fL (7.2-11.7); MONO # 1.2 K/uL (0.0-0.8); MONO % 7.4 % (0.0-10.0); NEUT # 14.1 K/uL (1.8-7.0); NEUT % 83.1 % (50.0-75.0); NRBC % 0.3 % (0.0-2.0); PLATELET COUNT 314 K/uL (130-400); RED CELL DISTRIBUTION WIDTH 15.2 % (11.5-14.5); WHITE BLOOD COUNT 16.9 K/uL (4.8-10.8)
[2018-03-10 01:31] LABS: INR 1.2
[2018-03-10] MEDS ORDERED: Fosphenytoin 1,000 MG in Sodium Chloride 0.9% 50 ML IV STA (01:46)
[2018-03-10 01:53] LABS: ALB/GLOB RATIO 1.7 (1.0-2.1); ALBUMIN 5.2 g/dL (3.5-5.0); ALT/SGPT 26 U/L (21-72); AST/SGOT 47 U/L (17-59); BLOOD UREA NITROGEN 14 mg/dL (9-20); CALCIUM 10.3 mg/dl (8.6-10.4); GFR AFRICAN-AMERICAN > 60; GFR NON-AFRICAN AMERICAN 60
[2018-03-10 01:57] LABS: SQUAMOUS EPITHIAL < 1 /hpf (0-5); URINE BACTERIA MANY (<OCC); URINE BILIRUBIN NEGATIVE (NEGATIVE); URINE BLOOD NEGATIVE (NEGATIVE); URINE CLARITY Hazy (Clear); URINE COLOR Yellow (YELLOW); URINE GLUCOSE (UA) NORMAL (Normal); URINE LEUKOCYTE ESTERASE NEG Leu/uL (Negative); URINE PROTEIN 2+ mg/dL (NEGATIVE); URINE UROBILINOGEN NORMAL mg/dL (0.2-1.0)
[2018-03-10 02:04] LABS: LYMPHOCYTE 10 % (20-40); MONOCYTE 6 % (0-10); NEUTROPHIL 84 % (50-75); PLATELET ESTIMATE NORMAL (NORMAL); TOTAL CELLS COUNTED 100
[2018-03-10 02:17] LABS: BARBITURATES, UR NEGATIVE (NEGATIVE); OPIATES, UR NEGATIVE (NEGATIVE)
[2018-03-10 02:37] LABS: BENZODIAZEPINES, UR POSITIVE (NEGATIVE); PHENCYCLIDINE, UR POSITIVE (NEGATIVE)
[2018-03-10] MEDS ORDERED: Dextrose 5%/0.9% NS 1,000 ML IV SCH (03:15)
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
--- NOTE | 2018-03-10 08:57 | RAD ---
Date of service: 03/10/2018 PROCEDURE: Cervical Spine Radiographs. HISTORY: Pain. COMPARISON: None. FINDINGS: BONES: Alignment maintained. No fracture. Dens Intact. DISC SPACES: Normal. SOFT TISSUES: Normal. No prevertebral soft tissue swelling. OTHER FINDINGS: None. IMPRESSION: No definite fracture or spondylolisthesis.
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
[2018-03-10] MEDS: Oxycodone/Acetaminophen 5/325 mg Tab PO PRN ×3 (09:25→21:35)
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
[2018-03-10 21:09] LABS: IRON 32 ug/dL (49-181)
[2018-03-10 21:19] LABS: % IRON SATURATION 13 (20-55); TOTAL IRON BINDING CAPACITY 249 ug/dL (250-450)
[2018-03-10 22:14] LABS: FOLATE 9.2 ng/mL
[2018-03-11] MEDS: Oxycodone/Acetaminophen 5/325 mg Tab PO PRN ×4 (04:15→22:37)
[2018-03-11 04:38] LABS: HEMOGLOBIN 14.6 g/dL (12.0-18.0); MEAN CORPUSCULAR HEMOGLOBIN 26.8 pg (27.0-31.0); MEAN CORPUSCULAR HGB CONC 33.5 g/dL (33.0-37.0); RBC 5.44 Mil/uL (4.40-5.90); RED CELL DISTRIBUTION WIDTH 15.3 % (11.5-14.5); WHITE BLOOD COUNT 9.4 K/uL (4.8-10.8)
[2018-03-11 04:53] LABS: BLOOD UREA NITROGEN 15 mg/dL (9-20); CALCIUM 8.7 mg/dl (8.6-10.4); GFR AFRICAN-AMERICAN > 60; GFR NON-AFRICAN AMERICAN > 60
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
--- NOTE | 2018-03-11 23:57 | CARD ---
APPROVED REPORT Date of service: 03/10/2018 EKG Measurement Heart [id number] <Conclusion> Normal sinus rhythm High j junction consider early repolarization changes, pericarditis or acute infarct Abnormal ECG
--- NOTE | 2018-03-11 23:57 | CARD ---
APPROVED REPORT Date of service: 03/10/2018 EKG Measurement Heart [id number] <Conclusion> Normal sinus rhythm Minimal voltage criteria for LVH, may be normal variant ST elevation, consider early repolarization, pericarditis, or injury Abnormal ECG
[2018-03-12] MEDS: Oxycodone/Acetaminophen 5/325 mg Tab PO PRN ×2 (05:29→14:53)
[2018-03-12 07:55] VITALS: BP 118/72; PULSE 60; RESP 20; TEMP 97.6; O2SAT 98
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
== END 2018-03-12 16:16 | disposition home or self-care (01) | DRG 767 ==
LOC: C.ER 23:24 → C.9E 03-10 02:12 → C.9I 03-10 03:44 → C.5S 03-12 04:29
PROVIDERS: ADMIT Internal Medicine; ATTEND Internal Medicine
DX: S06.5X0A Traumatic subdural hemorrhage without loss of consciousness, initial encounter (principal); S06.6X0A Traumatic subarachnoid hemorrhage without loss of consciousness, initial encounter; D72.829 Elevated white blood cell count, unspecified; J34.2 Deviated nasal septum; G40.909 Epilepsy, unspecified, not intractable, without status epilepticus; H91.92 Unspecified hearing loss, left ear; F19.10 Other psychoactive substance abuse, uncomplicated; Y08.02XA Assault by strike by baseball bat, initial encounter; Y92.9 Unspecified place or not applicable

== ENCOUNTER 2018-06-10 04:40 | Inpatient (IN) | payer MEDICAID, OTHER ==
[2018-06-10 04:40] VITALS: BMI 25.7
--- NOTE | 2018-06-10 05:05 | C.PDOC ---
History Of Present Illness 28 year old male with PMHx of depression, seizures presents to the ED requesting a psych evaluation. Patient admits to polysubstance abuse - oxycodone, marijuana, pcp, xanax. Patient reports he abuses multiple drugs everyday and wants to stop. Patient also states feeling depressed with SI but no specific plan. Does not take any chronic medication. Patient denies HI, hallucinations, CP, SOB, n/v/d, abdominal pain, trauma. ?paranoid schizophrenia: according to previous records. Time Seen by Provider: 06/10/18 04:44 Chief Complaint (Nursing): Psychiatric Evaluation History Per: Patient History/Exam Limitations: no limitations Onset/Duration Of Symptoms: Days Current Symptoms Are (Timing): Still Present Suicide/Self Injury Attempted (Context): None Modifying Factor(s): Alcohol, Narcotics Associated Symptoms: Depression. denies: Suicidal Thoughts, Suicidal Plan Recent travel outside of the [place]: No Additional History Per: Patient Past Medical History Reviewed: Historical Data, Nursing Documentation, Vital Signs Vital Signs: Last Vital Signs Temp 98.9 F 06/10/18 04:53 Pulse 106 H 06/10/18 04:53 Resp 18 06/10/18 04:53 BP 171/94 H 06/10/18 04:53 Pulse Ox 99 06/10/18 04:53 - Medical History PMH: Depression, Seizures (COLLEGE YEARS) Denies: Diabetes, Hepatitis, HIV, HTN, Chronic Kidney Disease, Sexually Transmitted Disease Surgical History: No Surg Hx - [facility] GROUP PSYCHOTHERAPY (02/09/17) INDIV PSYCHOTHERAPY FOR SUBSTANCE ABUSE TREATMENT, SUPPORT (02/09/17) INDIV PSYCHOTHERAPY FOR SUBSTANCE ABUSE, COGNITIV BEHAVIORAL (02/09/17) INDIV PSYCHOTHERAPY FOR SUBSTANCE ABUSE, PSYCHOEDUCATION (02/09/17) INDIVIDUAL PSYCHOTHERAPY, COGNITIVE-BEHAVIORAL (02/09/17) INDIVIDUAL PSYCHOTHERAPY, SUPPORTIVE (02/09/17) INSERTION OF ENDOTRACHEAL AIRWAY INTO TRACHEA, VIA OPENING (11/02/17) INSPECTION OF UPPER INTESTINAL TRACT, ENDO (05/30/16) RESPIRATORY VENTILATION, LESS THAN 24 CONSECUTIVE HOURS (11/02/17) Family History: States: Unknown Family Hx - Social History Hx Tobacco Use: No Hx Alcohol Use: Yes Hx Substance Use: Yes ("all of them") - Immunization History Hx Tetanus Toxoid Vaccination: No (2011) Hx Influenza Vaccination: No Hx Pneumococcal Vaccination: (unk) Review Of Systems Constitutional: Negative for: Fever, Chills Cardiovascular: Negative for: Chest Pain Respiratory: Negative for: Shortness of Breath Gastrointestinal: Negative for: Nausea, Vomiting, Abdominal Pain Skin: Negative for: Rash Neurological: Negative for: Weakness, Numbness Psych: Positive for: Depression, Suicidal ideation Physical Exam - Physical Exam Appears: Non-toxic, No Acute Distress Skin: Normal Color, Warm, Dry Head: Atraumatic, Normacephalic Eye(s): bilateral: Normal Inspection, EOMI Nose: Normal Oral Mucosa: Moist Neck: Normal ROM, Supple Chest: Symmetrical Cardiovascular: Rhythm Regular Respiratory: Normal Breath Sounds, No Rales, No Rhonchi, No Wheezing Gastrointestinal/Abdominal: Soft, No Tenderness, No Guarding, No Rebound Extremity: Normal ROM, No Tenderness, No Swelling Neurological/Psych: Oriented x3, Normal Speech Gait: Steady ED Course And Treatment - Laboratory Results Result Diagrams: 06/10/18 05:18 06/10/18 05:18 O2 Sat by Pulse Oximetry: 99 (ON RA) Pulse Ox Interpretation: Normal Progress Note: CAse endorsed to LUKE Palacios pending crisis evaluation and re-evalua tion. Disposition - Disposition Disposition Time: 06:50 Condition: STABLE Forms: [facility] (Togolese) - Clinical Impression Clinical Impression: Depression, Polysubstance abuse - PA / FIELD RING ASSEMBLER / Resident Statement MD/DO has reviewed & agrees with the documentation as recorded. - Scribe Statement The provider has reviewed the documentation as recorded by the Scribe Misael Gale All medical record entries made by the Scribe were at my direction and personally dictated by me. I have reviewed the chart and agree that the record accurately reflects my personal performance of the history, physical exam, medical decision making, and the department course for this patient. I have also personally directed, reviewed, and agree with the discharge instructions and disposition.
[2018-06-10 05:22] LABS: SQUAMOUS EPITHIAL < 1 /hpf (0-5); URINE BILIRUBIN NEGATIVE (NEGATIVE); URINE BLOOD NEGATIVE (NEGATIVE); URINE CLARITY Clear (Clear); URINE COLOR Yellow (YELLOW); URINE GLUCOSE (UA) NORMAL (Normal); URINE LEUKOCYTE ESTERASE NEG Leu/uL (Negative); URINE PROTEIN NEGATIVE (NEGATIVE); URINE UROBILINOGEN NORMAL mg/dL (0.2-1.0)
[2018-06-10 05:25] LABS: BASO # 0.1 K/uL (0.0-0.2); BASO % 0.7 % (0.0-2.0); EOS # 0.1 K/uL (0.0-0.7); EOS % 0.7 % (0.0-4.0); HEMOGLOBIN 14.2 g/dL (12.0-18.0); LYMPH # 2.1 K/uL (1.0-4.3); LYMPH % 24.2 % (20.0-40.0); MEAN CORPUSCULAR HEMOGLOBIN 27.3 pg (27.0-31.0); MEAN CORPUSCULAR HGB CONC 33.7 g/dL (33.0-37.0); MEAN PLATELET VOLUME 8.7 fL (7.2-11.7); MONO # 0.7 K/uL (0.0-0.8); NEUT # 5.9 K/uL (1.8-7.0); NEUT % 66.4 % (50.0-75.0); RBC 5.2 Mil/uL (4.40-5.90); RED CELL DISTRIBUTION WIDTH 14.1 % (11.5-14.5); WHITE BLOOD COUNT 8.8 K/uL (4.8-10.8)
[2018-06-10 05:33] LABS: ALB/GLOB RATIO 1.6 (1.0-2.1); ALBUMIN 4.5 g/dL (3.5-5.0); ALT/SGPT 41 U/L (21-72); AST/SGOT 54 U/L (17-59); BLOOD UREA NITROGEN 18 mg/dL (9-20); CALCIUM 9.4 mg/dl (8.6-10.4); GFR NON-AFRICAN AMERICAN > 60
[2018-06-10 05:37] LABS: BARBITURATES, UR NEGATIVE (NEGATIVE)
[2018-06-10 05:39] LABS: BENZODIAZEPINES, UR POSITIVE (NEGATIVE); OPIATES, UR POSITIVE (NEGATIVE); PHENCYCLIDINE, UR POSITIVE (NEGATIVE)
[2018-06-10] MEDS ORDERED: Aluminum Hydroxide/Magnesium Hydroxide Susp (30 mL) PO PRN (08:49)
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
[2018-06-10 09:14] VITALS: RESP 18; O2SAT 100
--- NOTE | 2018-06-10 13:51 | PCM.BM ---
<JoeyJaspal Aym - Last Filed: 06/10/18 13:48> Treatment Plan Problems - Problems identified on initial assessmt Suicidal Ideation Date Initiated: 06/10/18 Time Initiated: 09:05 Assessment reference: NA Status: Monitor Substance Abuse Date Initiated: 06/10/18 Time Initiated: 09:05 Assessment reference: NA Status: Active (Cocaine, Opiates, Marijuana, PCP and benzodiazepines) Treatment assets and liabiliti Patient Assests: cooperative, ADL independent, negotiates basic needs, cognitively intact Patient Liabilities: substance abuse, legal issue - Milieu Protocol Maintain good personal hygiene: every shift Encourage regular showers, every shift Remind patient to perform daily oral care, every shift Assist patient to perform ADL's Conduct patient checks and document Observation sheet: Q15 minutes Maintain personal safety: every shift Educate patient to report safety concerns to staff, every shift Monitor environment for contraband/sharps Medication safety: Monitor for expected outcome, potential side effects: every shift, Assess barriers to learning: every shift, Assess readiness for medication education: every shift <Clara Bergeron - Last Filed: 06/10/18 15:19> Family Contact Family involvement: Patient does not wish Family/SO involvement Family contact: Patient declines to allow family contact at present - Goals for Treatment Patient goals for treatment: "I want to go home." Discharge/Continuing Care - Education Needs Education Needs: Patient Medication, Patient Diagnosis/Disease Process, Patient Coping Skills, Patient Placement options, Patient Community resources - Discharge Discharge Criteria: Free of Suicidal thoughts, Normal sleep pattern, Ability to care for self, No longer exhibiting s/s of withdrawal, Reduction of target symptoms Discharge to:: Home - Treatment Team Participation Discussed with Family/SO: No Was Patient/Family/SO present at Treatment Team Meeting: Yes <Joanne Moreira - Last Filed: 06/12/18 13:04> - Diagnosis (1) Cocaine use disorder, severe, dependence Status: Acute Interventions: 06/12/18 13:04 * Assess 7x/week regarding severity of withdrawal * Educate regarding risks, benefits, side effects and alternatives of medications * Use Motivational Interviewing for abstinence * Use CBT for relapse prevention * Medication management for withdrawal symptoms * Encourage medication assisted treatment * (2) Depression Status: Acute Interventions: 06/12/18 13:04 * Assess/adjust medications daily and /or as needed * See patient on an individual basis 7x/week to assess symptoms of depression * Monitor for side effects & effectiveness of medications * (3) Opioid use disorder, severe, dependence Status: Acute Interventions: 06/12/18 13:04 * Assess 7x/week regarding severity of withdrawal * Educate regarding risks, benefits, side effects and alternatives of medications * Use Motivational Interviewing for abstinence * Use CBT for relapse prevention * Medication management for withdrawal symptoms * Encourage medication assisted treatment *
--- NOTE | 2018-06-11 14:31 | PCM.PYCHPN ---
Psychiatric Progress Note - Psychiatric Progress Note Patient seen today, length of contact: 16 min Patient Chief Complaint: "I am tired" Problems Identified/Issues Discussed: The pt is seen, chart reviewed, case discussed with staff. Support and psychoeducation given, CBT and [facility] used briefly No new symptoms reported, improving slowly and needs more time No SEs from medications, risks discussed. After care discussed Medication Change: Yes (detox changes daily) Medical Record Reviewed: Yes Mental Status Examination - Cognitive Function Orientation: Person, Place, Situation, Time Memory: Intact Attention: Poor Concentration: Poor Association: WNL Fund of Knowledge: WNL - Mood Mood: Depressed, Anxious - Affect Affect: Constricted - Speech Speech: Appropriate - Formal Thought Process Formal Thought Process: No Impairment - Suicidal Ideation Suicidal Ideation: No - Homicidal Ideation Homicidal Ideation: No Goal/Treatment Plan - Goal/Treatment Plan Need for Continued Stay: Discharge may exacerbated symptoms, Severe functional impairment Progress Toward Problem(s) and Goals/Treatment Plan: As needed medications All risks, benefits and alternatives of the meds discussed, and the pt agreed and understood. Attend groups and activities Supportive therapy and psychoeducation [place] for abstinence Encourage MAT Teach healthy lifestyle methods, i.e. diet, exercise, meditation Refer to rehab or IOP, and self-help groups, CBT for relapse prevention Haloperidol 5mg PO q4h for agitation PRN Seroquel 50mg PO BID discontinued due to sedation 100mg PO HS for mood swings, irritability Remeron for depression
--- NOTE | 2018-06-12 13:03 | PCM.PYCHPN ---
Psychiatric Progress Note - Psychiatric Progress Note Patient seen today, length of contact: 15 min Patient Chief Complaint: "I am OK" Problems Identified/Issues Discussed: The pt is seen, chart reviewed, case discussed with staff. The pt is compliant with medications and reports no side-effects. Symptoms are improving but needs more time to stabilize. Pt attends groups and activities. Support given, psycho-education provided. After care discussed. He wants to leave tomorrow Medication Change: No Medical Record Reviewed: Yes Mental Status Examination - Cognitive Function Orientation: Person, Place, Situation, Time Memory: Intact Attention: Poor Concentration: Poor Association: WNL Fund of Knowledge: WNL - Mood Mood: Depressed, Anxious - Affect Affect: Constricted - Speech Speech: Appropriate - Formal Thought Process Formal Thought Process: No Impairment - Suicidal Ideation Suicidal Ideation: No - Homicidal Ideation Homicidal Ideation: No Goal/Treatment Plan - Goal/Treatment Plan Need for Continued Stay: Discharge may exacerbated symptoms, Severe functional impairment Progress Toward Problem(s) and Goals/Treatment Plan: As needed medications All risks, benefits and alternatives of the meds discussed, and the pt agreed and understood. Attend groups and activities Supportive therapy and psychoeducation [place] for abstinence Encourage MAT Teach healthy lifestyle methods, i.e. diet, exercise, meditation Refer to rehab or IOP, and self-help groups, CBT for relapse prevention Haloperidol 5mg PO q4h for agitation PRN Seroquel 50mg PO BID discontinued due to sedation 100mg PO HS for mood swings, irritability Remeron for depression Estimated Date of D/C: 06/13/18
[2018-06-13 06:54] VITALS: TEMP 97.6
[2018-06-13 08:55] VITALS: BP 125/84; PULSE 66
--- NOTE | 2018-06-13 09:43 | PCM.PYCHDC ---
Mental Status Examination - Mental Status Examination Orientation: Person Discharge Summary - Discharge Note Consultations:: List each consultation separately and include: 1. Reason for request. 2. Findings. 3. Follow-up Summary of Hospital Course include:: 1. Description of specific treatment plan utilized for patients during their course of treatmen. 2. Summarize the time- course for resolution of acute symptoms and/or regressed behaviors. 3. Describe issues identified and worked on during hospitalization. 4. Describe medication utilized. 5. Describe medical problems identified and treated. 6. Reassessment of suicide risk Summary of Hospital Course: Pt is a 28-yr old AAM with a past history of depression and substance use presented to the ED with suicidal ideation and requesting help stopping his drug use. The patient is a poor historian. He admits to abusing oxycodone, marijuana, PCP, xanax. He states that he had a big fight last week with his family when on a "binge". He felt like he was getting better toward then the end of the week then relapsed and has been having suicidal ideations and depression. He stated that he feels like he is "slowly killing himself, so why not just get it over with" when he is using drugs. He has been to a psychiatric hospital once before but no attempts. He currently admits feeling depressed. He currently denies hallucinations, paranoia. He contracts for safety and will follow safety plan. Patient admits that he will use any drug he can get his hands on. Admits to oxycodone about 6-7 pills/day average, cocaine use, marijuana, PCP Last use was oxycodone last night. Interestingly, he claims he will NOT withdraw from opiates. However, he has a hx of ODs Social hx: Single, no child, no job, stays with family Medical hx: Denies Allergies: Denies Surgical hx: Denies Hospitalizations: Upper GI bleed/syncope, [facility], Subdural hematomain the past Family Hx: Unknown medical history, no psychiatric history in family Medications: Denies [facility] but [facility] where we tried to refer but no one called back. - Diagnosis (1) Cocaine use disorder, severe, dependence Current Visit: Yes Status: Acute (2) Depression Current Visit: Yes Status: Acute (3) Opioid use disorder, severe, dependence Current Visit: Yes Status: Acute - Final Diagnosis (DSM 5) Condition upon Discharge: STABLE Disposition: HOME/ ROUTINE Follow-up Treatment Plan: As needed medications All risks, benefits and alternatives of the meds discussed, and the pt agreed and understood. Attend groups and activities Supportive therapy and psychoeducation [place] for abstinence Encourage MAT Teach healthy lifestyle methods, i.e. diet, exercise, meditation Refer to rehab or IOP, and self-help groups, CBT for relapse prevention Haloperidol 5mg PO q4h for agitation PRN Seroquel 50mg PO BID discontinued due to sedation 100mg PO HS for mood swings, irritability Remeron for depression Prescriptions/Medication Reconciliation: hydrOXYzine HCl [Atarax] 50 mg PO BID PRN #30 tab PRN Reason: Anxiety Mirtazapine [Remeron] 15 mg PO HS #30 tab QUEtiapine [Seroquel] 100 mg PO HS #30 tab
[2018-06-13] MEDS ORDERED: Influenza Vaccine 60 MCG/0.5 ML SYR (3 yr & up) IM ONE (10:00)
[2018-06-13] MEDS ORDERED: Pneumococcal 23-Valent Vaccine IM ONE (10:30)
== END 2018-06-13 11:12 | disposition home or self-care (01) | DRG 754 ==
LOC: C.ER 04:40 → C.5E 08:22
PROVIDERS: ADMIT Psychiatry & Neurology Psychiatry; ATTEND Psychiatry & Neurology Psychiatry
PROC: GZHZZZZ Group Psychotherapy (ICD-10-PCS; principal; 2018-06-10)
PROC: GZ56ZZZ Individual Psychotherapy, Supportive (ICD-10-PCS; 2018-06-10)
DX: F32.9 Major depressive disorder, single episode, unspecified (principal); F11.20 Opioid dependence, uncomplicated; F14.20 Cocaine dependence, uncomplicated; F16.10 Hallucinogen abuse, uncomplicated; R45.851 Suicidal ideations; F12.90 Cannabis use, unspecified, uncomplicated